=== PATIENT | female | born 1975 | race American Indian/Alaskan Native ===

== ENCOUNTER 2017-02-10 08:36 | Day surgery (SDC) | payer MEDICAID ==
--- NOTE | 2017-02-10 10:15 | Anesthesia Consultation ---
Anesthesia Consult and Med Hx Date of service: 02/10/17 - Airway Anesthetic Teeth Evaluation: Good ROM Head & Neck: Adequate Mental/Hyoid Distance: Adequate Mallampati Class: Class II Intubation Access Assessment: Good - Pulmonary Exam CTA: Yes - Cardiac Exam Cardiac Exam: No Murmur - Pre-Operative Health Status ASA Pre-Surgery Classification: ASA2 Proposed Anesthetic Plan: General - Pulmonary Hx Smoking: Yes
--- NOTE | 2017-02-10 10:16 | Anesthesia Day of Surgery ---
Anesthesia Day of Surgery - Day of Surgery Patient Examined: Yes Patient H&P Reviewed: Yes Patient is NPO: Yes
[2017-02-10] MEDS ORDERED: NACL BACTERIOSTATIC INFILTRATI ONE (10:47)
[2017-02-10] MEDS ORDERED: ANCEF/STERILE WATER 2 GM/20 ML IV NR (11:00)
[2017-02-10] MEDS ORDERED: PEPCID PO NR (11:00)
[2017-02-10] MEDS ORDERED: VERSED IV NR (11:00)
[2017-02-10] MEDS ORDERED: LACTATED RINGERS 1,000 ML IV SCH (11:00)
[2017-02-10] MEDS ORDERED: DECADRON ONE (11:50)
[2017-02-10] MEDS ORDERED: ROBINUL ONE ×2 (11:50)
[2017-02-10] MEDS ORDERED: ZOFRAN ONE (11:50)
[2017-02-10] MEDS ORDERED: XYLOCAINE MPF 2% ONE (11:50)
[2017-02-10] MEDS ORDERED: NEOSTIGMINE ONE (11:50)
[2017-02-10] MEDS ORDERED: ZEMURON IV ONE (11:50)
[2017-02-10] MEDS ORDERED: ANTIBIOTIC OINT TP ONE (13:03)
[2017-02-10] MEDS ORDERED: MARCAINE 0.25% INFILTRATI ONE (13:03)
[2017-02-10] MEDS ORDERED: BACITRACIN ONE (13:18)
[2017-02-10] MEDS ORDERED: NACL 0.9% 1000 ML 2,000 ML ONE (13:31)
[2017-02-10] MEDS ORDERED: SUBLIMAZE ONE (13:33)
[2017-02-10] MEDS ORDERED: DIPRIVAN 10 MG/ML IV ONE (13:34)
[2017-02-10] MEDS ORDERED: BACITRACIN IR ONE (13:51)
[2017-02-10] MEDS ORDERED: NACL 0.9% IR ONE (13:51)
[2017-02-10] MEDS ORDERED: NACL 0.9% 1000 ML IR ONE ×2 (13:51)
[2017-02-10] MEDS ORDERED: DILAUDID ONE ×2 (14:57→16:12)
[2017-02-10] MEDS ORDERED: LACTATED RINGERS 1,000 ML ONE (14:58)
[2017-02-10] MEDS: DILAUDID IV PRN ×4 (16:20→16:50)
--- NOTE | 2017-02-10 16:23 | Post Anesthesia Evaluation ---
- Post Anesthesia Evaluation Patient Participated: Yes Airway Patent: Yes Stable Respiratory Function: Yes Nausea/Vomiting: No Temp > 96.8F: Yes Pain Manageable: Yes Adequeate Hydration: Yes Anesthesia Complications: No
[2017-02-10] MEDS ORDERED: DILAUDID IV PRN (16:56)
[2017-02-10] MEDS: VERSED IV SCH ×2 (17:20→18:45)
[2017-02-10] MEDS ORDERED: TORADOL IV ONE (18:39)
[2017-02-10] MEDS ORDERED: TORADOL ONE (18:42)
[2017-02-10] MEDS ORDERED: BENADRYL IV ONE (18:42)
--- NOTE | 2017-02-10 19:48 | Operative Report ---
PREOPERATIVE DIAGNOSES: 1. Bilateral absence of breasts. 2. Bilateral acquired breast deformity. 3. History of breast cancer. 4. Status post bilateral mastectomies. POSTOPERATIVE DIAGNOSES: 1. Bilateral absence of breasts. 2. Bilateral acquired breast deformity. 3. History of breast cancer. 4. Status post bilateral mastectomies. PROCEDURE: Bilateral tissue thimble press operator breast reconstruction. SURGEON: Oswaldo Sparks MD IMAGING AIDE: J Luis Hartman CSA FINDINGS: 850 mL Peak high profile tissue expanders were used intraoperatively filled to 120 mL on each side. DESCRIPTION OF PROCEDURE: The patient was brought to the operating room and placed on the table in supine position. Following administration of general anesthesia, bilateral breasts were prepped with Betadine solution, draped in usual sterile manner. A #10 blade scalpel was used to incise the previous inframammary fold skin incision deepened through subcutaneous fat down to muscle and ultimately the chest wall using the electrocautery. A subpectoral pocket was created extended laterally beneath the serratus inferiorly down to the inframammary fold. Hemostasis was controlled using electrocautery. Tissue expanders were placed followed by closure in layers with the muscle closure with interrupted 2-0 Monocryl sutures, deep subcutaneous sutures with interrupted 2-0 Monocryl sutures, and skin closure with a running 2-0 Monocryl subcuticular stitch. Mastisol, Steri-Strips, and sterile dressings were applied. At this point, the ports were accessed and 120 mL of normal saline, infiltrated into each tissue thimble press operator. Mastisol, Steri-Strips, and sterile dressings were applied. The patient tolerated the procedure well and returned to recovery room in stable condition. JOB# [id number] FTW/NTS
[2017-02-10] MEDS ORDERED: FLEXERIL PO SCH (20:00)
[2017-02-10 21:01] VITALS: BP 110/75
== END 2017-02-10 08:37 | disposition home or self-care (01) ==
LOC: OR 08:36 → EDBD 22:15
PROVIDERS: ATTEND Plastic Surgery
DX: N64.89 Other specified disorders of breast (principal); Z98.51 Tubal ligation status; F32.9 Major depressive disorder, single episode, unspecified; F41.9 Anxiety disorder, unspecified; Z90.13 Acquired absence of bilateral breasts and nipples; Z85.3 Personal history of malignant neoplasm of breast; Z79.899 Other long term (current) drug therapy; Z83.3 Family history of diabetes mellitus; Z82.49 Family history of ischemic heart disease and other diseases of the circulatory system; Z87.891 Personal history of nicotine dependence
CPT/HCPCS: 19357; 81025; 82962; C1789; J0690; J1100; J1170; J1200; J1885; J2250; J2405; J2704; J2710; J3010; J7030; J7120

== ENCOUNTER 2017-04-21 17:52 | Emergency (ER) | payer MEDICAID ==
--- NOTE | 2017-04-22 10:28 | Emergency Department Report ---
ED General Adult HPI - General Chief complaint: Upper Respiratory Infection Stated complaint: CHEST CONGESTION Time Seen by Provider: 04/22/17 10:16 Source: patient Mode of arrival: Ambulatory Limitations: No Limitations - History of Present Illness Initial comments: 46-year-old female signed out AMA on the of this month at that time she was admitted for possible flu with sirs, she's back today saying that she had to leave because her daughters were in trouble and she is not getting better. She is having by history persistent fever and persistant and question of green cough with body aches. Mild headache no stiff neck no photophobia no chest pain no abdominal pain no rash, no vag c/o, no dysuria, no other c/o. No vaginal complaints no vaginal bleeding history of bilateral mastectomy for breast cancer currently on tamoxifen -: unknown Radiation: non-radiation Severity scale (0 -10): 0 Associated Symptoms: denies other symptoms, malaise, weakness. denies: confusion, chest pain, diaphoresis, headaches, loss of appetite, nausea/vomiting , rash, seizure, shortness of breath, syncope - Related Data Home Medications Medication Instructions Recorded Confirmed Last Taken Tamoxifen Citrate 20 mg PO DAILY 02/10/17 04/20/17 1 Week Ago ~02/03/17 metFORMIN XR [Glucophage XR] 1 tab PO DAILY 02/10/17 04/20/17 1 Week Ago ~02/03/17 Butalb/Acetaminophen/Caffeine 1 cap PO Q4H PRN 04/20/17 04/20/17 Unknown [Fioricet 50-300-40 mg CAP] Cephalexin [Keflex] 500 mg PO Q6HR 04/20/17 04/20/17 Unknown Cyclobenzaprine [Flexeril] 10 mg PO TID PRN 04/20/17 04/20/17 Unknown Ferrous Sulfate [Feosol] 325 mg PO TID 04/20/17 04/20/17 Unknown Topiramate [Topamax] 25 mg PO BID 04/20/17 04/20/17 Unknown Allergies Allergy/AdvReac Type Severity Reaction Status Date / Time latex Allergy Hives Verified 02/10/17 10:26 ED Review of Systems ROS: Stated complaint: CHEST CONGESTION Other details as noted in HPI Comment: All other systems reviewed and negative Constitutional: see HPI, malaise, weakness. denies: diaphoresis, fever Eyes: denies: vision change ENT: denies: ear pain, throat pain, dental pain, hearing loss, epistaxis Cardiovascular: denies: chest pain, palpitations, dyspnea on exertion, orthopnea , edema, syncope, paroxysmal nocturnal dyspnea Gastrointestinal: denies: abdominal pain, nausea, vomiting, diarrhea, constipation, hematemesis, melena Genitourinary: urgency. denies: dysuria, frequency, hematuria, discharge Musculoskeletal: denies: joint swelling, arthralgia, myalgia Neurological: denies: headache, weakness, numbness, paresthesias, confusion, abnormal gait, vertigo Psychiatric: denies: visual hallucinations, homicidal thoughts, suicidal thoughts Hematological/Lymphatic: denies: easy bruising ED Past Medical Hx - Past Medical History Previous Medical History?: Yes Hx Diabetes: Yes Hx of Cancer: Yes (breast) Hx Headaches / Migraines: Yes - Surgical History Past Surgical History?: Yes Additional Surgical History: Double mastectomy 2016. Breast implants. Breasts implant removal secondary to infection, x 3 - Social History Smoking Status: Former Smoker Substance Use Type: Alcohol, Prescribed - Medications Home Medications: Home Medications Medication Instructions Recorded Confirmed Last Taken Type Tamoxifen Citrate 20 mg PO DAILY 02/10/17 04/20/17 1 Week Ago History ~02/03/17 metFORMIN XR [Glucophage XR] 1 tab PO DAILY 02/10/17 04/20/17 1 Week Ago History ~02/03/17 Butalb/Acetaminophen/Caffeine 1 cap PO Q4H PRN 04/20/17 04/20/17 Unknown History [Fioricet 50-300-40 mg CAP] Cephalexin [Keflex] 500 mg PO Q6HR 04/20/17 04/20/17 Unknown History Cyclobenzaprine [Flexeril] 10 mg PO TID PRN 04/20/17 04/20/17 Unknown History Ferrous Sulfate [Feosol] 325 mg PO TID 04/20/17 04/20/17 Unknown History Topiramate [Topamax] 25 mg PO BID 04/20/17 04/20/17 Unknown History ED Physical Exam - General Limitations: No Limitations General appearance: alert, in no apparent distress, anxious - Head Head exam: Present: atraumatic, normocephalic - Eye Eye exam: Present: normal appearance, PERRL, EOMI. Absent: scleral icterus - ENT ENT exam: Present: normal exam, normal orophraynx, mucous membranes moist - Neck Neck exam: Present: normal inspection. Absent: tenderness, meningismus - Respiratory Respiratory exam: Present: normal lung sounds bilaterally. Absent: respiratory distress, wheezes, rales, rhonchi, stridor, chest wall tenderness, accessory muscle use, decreased breath sounds, prolonged expiratory - Cardiovascular Cardiovascular Exam: Present: regular rate, normal rhythm, normal heart sounds. Absent: rubs, gallop - GI/Abdominal GI/Abdominal exam: Present: soft. Absent: distended, tenderness, guarding, rebound, mass, bruit, pulsatile mass - Extremities Exam Extremities exam: Present: normal inspection, full ROM, normal capillary refill. Absent: tenderness, pedal edema, joint swelling, calf tenderness - Back Exam Back exam: Present: normal inspection, full ROM. Absent: tenderness, CVA tenderness (R), CVA tenderness (L), muscle spasm, paraspinal tenderness, vertebral tenderness - Neurological Exam Neurological exam: Present: alert, oriented X3, CN II-XII intact. Absent: motor sensory deficit - Skin Skin exam: Present: warm, dry, intact, normal color. Absent: rash, cyanosis, diaphoretic, erythema, urticaria, vesicles, petechiae ED Course Vital Signs 04/21/17 04/22/17 04/22/17 18:38 07:25 09:09 Temperature 99.8 F H 98.0 F 98 F Pulse Rate 108 H 95 H 107 H Respiratory 20 20 17 Rate Blood Pressure 129/92 101/69 Blood Pressure 119/83 [Right] O2 Sat by Pulse 98 99 97 Oximetry - Reevaluation(s) Reevaluation #1: 04/22/17 14:52 Patient here for reevaluation of persistent malaise status post AMA after she was admitted for Sirs and flulike illness. She has no fever she denies any shaking chills no black or bloody stool no stiff neck no rash no headache she did have mild lactic acidosis on her previous abmit is awake alert oriented 3 supple neck and nontoxic and afebrile ED Medical Decision Making - Lab Data Result diagrams: 04/22/17 10:48 04/22/17 10:48 - Radiology Data Radiology results: report reviewed - Medical Decision Making Patient was reevaluated. She does appear to be having a resolving viral syndrome. Repeat lactate was within normal limits. She does have chronic anemia. She denies any black or bloody stools no evidence of hemolysis or acute bleeding at this time she will need further evaluation for chronic anemia. She has a supple neck she is afebrile. Chest x-ray was read as negative by the radiologist she had no retractions. She did appear to have a UTI however will be started on antibiotics she is stable for outpatient follow- up. She is nontoxic and has no evidence of sepsis at this time. She is tolerating by mouth. She has no acute abdomen. Symptoms are consistent with resolving viral process likely UTI no other emergent process is identified at this time that would require further workup or admission she is therefore stable for patient follow-up Critical care attestation.: If time is entered above; I have spent that time in minutes in the direct care of this critically ill patient, excluding procedure time. ED Disposition Clinical Impression: Viral illness, UTI (urinary tract infection), Chronic anemia Disposition: TO HOME OR SELFCARE Is pt being admited?: No Condition: Stable Instructions: Anemia (ED), Viral Syndrome (ED), Urinary Tract Infection in Women (ED) Additional Instructions: See her regular doctor in 2 days with her doctor listed return if new or alarming symptoms or call 911 Referrals: ANTONY VILLAGOMEZ MD [Primary Care Provider] - 3-5 Days FAVIAN LUNDBERG MD [Staff Physician] - 3-5 Days Time of Disposition: 14:57
[2017-04-22] MEDS ORDERED: NACL 0.9% 1000 ML 1,000 ML IV ONE ×2 (10:34→12:19)
--- NOTE | 2017-04-22 10:51 | XRay Report ---
ROUTINE CHEST, TWO VIEWS: HISTORY: Wheezing. The trachea, heart, mediastinal contour, lung chen and bony thorax are unremarkable. IMPRESSION: Unremarkable chest x-ray.
[2017-04-22 11:23] LABS: Hematocrit 27.6 % (30.3-42.9); Hemoglobin 8.6 gm/dl (10.1-14.3); Mean Corpuscular HGB Conc 31 % (30-34); Mean Corpuscular Volume 73 fl (79-97); Platelet Count 261 K/mm3 (140-440); Red Blood Count 3.79 M/mm3 (3.65-5.03)
[2017-04-22 11:26] LABS: Mean Corpuscular Hemoglobin 23 pg (28-32); Red Cell Distribution Width 21.1 % (13.2-15.2)
[2017-04-22 11:43] LABS: Alanine Aminotransferase 15 units/L (7-56); BUN/Creatinine Ratio 8; Blood Urea Nitrogen 6 mg/dL (7-17); Calcium 8.7 mg/dL (8.4-10.2); Hemolysis Index 2
[2017-04-22 12:19] LABS: Anisocytosis 2+; Basophils % (Manual) 0 % (0.0-1.8); Hypochromasia 1+; Total Cells Counted 100
[2017-04-22 12:20] LABS: Poikilocytosis 1+
[2017-04-22] MEDS ORDERED: TYLENOL PO ONE (13:45)
[2017-04-22] MEDS ORDERED: TYLENOL ONE (13:46)
[2017-04-22 14:25] LABS: HCG Qualitative,Urine Negative (Negative)
[2017-04-22 14:27] LABS: Bilirubin,Urine NEG (Negative); Blood,Urine NEG (Negative); Color,Urine Yellow (Yellow); Hyaline Casts,Urine 13 /LPF; Mucus,Urine 3+ /HPF; Nitrite,Urine NEG (Negative); Urobilinogen,Urine < 2.0 mg/dL (<2.0)
[2017-04-22 14:29] LABS: Protein,Urine <30 mg dL mg/dL (Negative)
[2017-04-22 17:11] VITALS: BP 95/56
== END 2017-04-22 15:35 | disposition home or self-care (01) ==
LOC: ED 17:52
DX: N39.0 Urinary tract infection, site not specified (principal); B34.9 Viral infection, unspecified; D64.9 Anemia, unspecified; E11.9 Type 2 diabetes mellitus without complications; G43.909 Migraine, unspecified, not intractable, without status migrainosus; Z87.891 Personal history of nicotine dependence; Z91.040 Latex allergy status
CPT/HCPCS: 36415; 71046; 80053; 81001; 81025; 82140; 85007; 85025; 96360; 96361; 99284; J7030; 87116